=== PATIENT | male | born 1990 | race American Indian/Alaskan Native ===

== ENCOUNTER 2017-07-23 21:53 | Emergency (ER) | payer SELFPAY ==
[2017-07-23 22:12] VITALS: O2SAT 98
--- NOTE | 2017-07-23 23:47 | CT ---
EXAM: CT Head Without Intravenous Contrast CLINICAL HISTORY: 27 years old, male; Signs and symptoms; Dizziness TECHNIQUE: Axial computed tomography images of the head/brain without intravenous contrast. All CT scans at this facility use one or more dose reduction techniques, viz.: automated exposure control; ma/kV adjustment per patient size (including targeted exams where dose is matched to indication; i.e. head); or iterative reconstruction technique. Coronal and sagittal reformatted images were created and reviewed. COMPARISON: No relevant prior studies available. FINDINGS: Brain: No intracranial hemorrhage. No mass. No definite edema. Ventricles: No hydrocephalus. Bones/joints: No acute fracture. Soft tissues: Unremarkable. Sinuses: No acute sinusitis. Mastoid air cells: No mastoid effusion. Orbits: Unremarkable as visualized. Nasopharynx: Enlarged adenoids. IMPRESSION: 1. No acute intracranial abnormality. 2. Incidental/non-acute findings are described above.
--- NOTE | 2017-07-24 00:17 | C.PDOC ---
History Of Present Illness 27 year old male presents to the ED for evaluation of headache and neck pain which began earlier today. Patient states he was at work when a 200lb box fell onto his head. Patient reports that he lost consciousness. Patient was then evaluated by the employee health doctor at this work, who cleared the patient without undergoing any imaging. Patient now complains of headache and neck pain , and is requesting imaging studies. He denies vision change, nausea, vomiting, extremity numbness/weakness. Time Seen by Provider: 07/23/17 22:55 Chief Complaint (Nursing): Medical Clearance History Per: Patient History/Exam Limitations: no limitations Onset/Duration Of Symptoms: Hrs Current Symptoms Are (Timing): Still Present Additional History Per: Patient Past Medical History Reviewed: Historical Data, Nursing Documentation, Vital Signs Vital Signs: Last Vital Signs Temp 97.9 F 07/23/17 22:06 Pulse 72 07/23/17 22:06 Resp 18 07/23/17 22:06 BP 144/84 07/23/17 22:06 Pulse Ox 98 07/24/17 00:50 - Medical History PMH: No Chronic Diseases Surgical History: No Surg Hx Family History: States: Unknown Family Hx - Social History Hx Tobacco Use: Yes Hx Alcohol Use: No Hx Substance Use: No - Immunization History Hx Tetanus Toxoid Vaccination: Yes (2014) Hx Influenza Vaccination: No Hx Pneumococcal Vaccination: No Review Of Systems Musculoskeletal: Positive for: Neck Pain Neurological: Positive for: Headache Physical Exam - Physical Exam Appears: Non-toxic, No Acute Distress Skin: Normal Color, Warm, Dry Head: Tenderness (to right temporal-parietal scalp region ), No Abrasion, No Laceration Eye(s): bilateral: Normal Inspection Oral Mucosa: Moist Neck: Paracervical Tenderness, No Step Off Deformity, No Other (gross deformities) Chest: Symmetrical, No Deformity, No Tenderness Cardiovascular: Rhythm Regular, No Murmur Respiratory: Normal Breath Sounds, No Rales, No Rhonchi, No Wheezing Extremity: Normal ROM, Capillary Refill (less than 2 seconds ) Neurological/Psych: Oriented x3, Normal Speech, Normal Cognition Gait: Steady ED Course And Treatment O2 Sat by Pulse Oximetry: 98 (on RA) Pulse Ox Interpretation: Normal Medical Decision Making Medical Decision Making: Assessment: minor head injury and cervical strain Progress: CT Head and Cervical Spine XR ordered and reviewed. ct head nad c-spine xray - prelim reading no fx. patient resting comfortably, discharged home to follow up with worker's compensation department. Disposition Counseled Patient/Family Regarding: Studies Performed, Diagnosis, Need For Followup, Rx Given - Disposition Referrals: Non [facility] Provider, [Primary Care Provider] - [facility] [Outside] Disposition: HOME/ ROUTINE Disposition Time: 00:51 Condition: IMPROVED Additional Instructions: follow up with worker's compensation department in 2 days take pain medication as needed return to hospital if symptoms worsens or progress ice to injured area Prescriptions: Cyclobenzaprine [Cyclobenzaprine HCl] 10 mg PO TID PRN #12 tab PRN Reason: Muscle Spasm Naproxen [Naprosyn] 500 mg PO BID PRN #16 tab PRN Reason: Pain, Moderate (4-7) Instructions: Head Injury (ED), Concussion (ED) Forms: [facility] (Citizen Of [place]), General Discharge Instructions - Clinical Impression Clinical Impression: Head injury, Cervical strain - Scribe Statement The provider has reviewed the documentation as recorded by the Scribe (lAaina Zelaya) Provider Attestation: All medical record entries made by the Scribe were at my direction and personally dictated by me. I have reviewed the chart and agree that the record accurately reflects my personal performance of the history, physical exam, medical decision making, and the department course for this patient. I have also personally directed, reviewed, and agree with the discharge instructions and disposition.
[2017-07-24 01:17] VITALS: BP 130/76; PULSE 74; RESP 20; TEMP 98.1
--- NOTE | 2017-07-24 13:02 | RAD ---
PROCEDURE: Cervical Spine Radiographs. HISTORY: Pain. COMPARISON: None available FINDINGS: BONES: Straightening of the normal cervical lordosis may be related to muscle spasm or positioning. Alignment appears otherwise satisfactory. No listhesis. No acute displaced fracture identified. DISC SPACES: Unremarkable. SOFT TISSUES: Unremarkable. No prevertebral soft tissue swelling. OTHER FINDINGS: None. IMPRESSION: Straightening of the normal cervical lordosis may be related to muscle spasm or positioning.
== END 2017-07-24 01:17 | disposition home or self-care (01) ==
LOC: SUPCPDRO 21:53 → C.ER 21:53
DX: S09.90XA Unspecified injury of head, initial encounter (principal); S16.1XXA Strain of muscle, fascia and tendon at neck level, initial encounter; W22.8XXA Striking against or struck by other objects, initial encounter; Y92.89 Other specified places as the place of occurrence of the external cause; Y99.0 Civilian activity done for income or pay

== ENCOUNTER 2017-11-21 22:14 | Emergency (ER) | payer SELFPAY ==
[2017-11-21 23:48] LABS: BASO # 0.1 K/uL (0.0-0.2); BASO % 0.7 % (0.0-2.0); EOS # 0.1 K/uL (0.0-0.7); EOS % 0.7 % (0.0-4.0); HEMOGLOBIN 16.1 g/dL (12.0-18.0); LYMPH # 2.3 K/uL (1.0-4.3); LYMPH % 25.7 % (20.0-40.0); MEAN CELL VOLUME 91.5 fL (80.0-94.0); MEAN CORPUSCULAR HEMOGLOBIN 32.4 pg (27.0-31.0); MEAN CORPUSCULAR HGB CONC 35.4 g/dL (33.0-37.0); MEAN PLATELET VOLUME 6.7 fL (7.2-11.7); MONO % 10.9 % (0.0-10.0); NEUT # 5.5 K/uL (1.8-7.0); RBC 4.99 Mil/uL (4.40-5.90); RED CELL DISTRIBUTION WIDTH 13.6 % (11.5-14.5); WHITE BLOOD COUNT 8.9 K/uL (4.8-10.8)
[2017-11-22 00:01] LABS: ALB/GLOB RATIO 1.1 (1.0-2.1); ALBUMIN 5.1 g/dL (3.5-5.0); ALT/SGPT 24 U/L (21-72); AST/SGOT 21 U/L (17-59); BLOOD UREA NITROGEN 14 mg/dL (9-20); CALCIUM 10.2 mg/dl (8.6-10.4); GFR AFRICAN-AMERICAN > 60; GFR NON-AFRICAN AMERICAN > 60; LIPASE 49 U/L (23-300)
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
[2017-11-22 00:32] VITALS: BP 152/87; RESP 16; TEMP 98.1; O2SAT 99
[2017-11-22 00:48] VITALS: PULSE 72
--- NOTE | 2017-11-22 22:20 | CARD ---
APPROVED REPORT EKG Measurement Heart [id number] <Conclusion> Normal sinus rhythm Possible Left atrial enlargement Nonspecific T wave abnormality Incopelte RBBB Abnormal ECG
== END 2017-11-22 00:30 | disposition home or self-care (01) ==
LOC: C.ER 22:14
DX: S20.212A Contusion of left front wall of thorax, initial encounter (principal); V89.2XXA Person injured in unspecified motor-vehicle accident, traffic, initial encounter
CPT/HCPCS: 71250; 80053; 83690; 84484; 85025; 93005; 96374; 96375; 99285; J1885